=== PATIENT | female | born 1990 | race Caucasian/White ===

== ENCOUNTER 2022-06-21 21:19 | Emergency (ER) | payer OTHER, SELFPAY ==
[2022-06-21 21:39] VITALS: BP 133/70; PULSE 94; RESP 20; TEMP 36.6; O2SAT 98; BMI 28.2
--- NOTE | 2022-06-21 21:47 | DI.RAD.S_ITS ---
PROCEDURE: XR HAND RT MIN 3V INDICATIONS: 5th finger injury TECHNIQUE: 3 views of the hand(s) acquired. COMPARISON: None. FINDINGS: Bones: There is an apparent nondisplaced fracture seen involving the distal aspect of the distal phalanx of the 5th finger. No intra-articular involvement is seen. No additional fractures are detected. Soft tissues: No suspicious soft tissue calcifications. Overlying bandaging material is seen. IMPRESSION: Apparent nondisplaced fracture involving the distal aspect of the distal phalanx of the right 5th finger. Differential diagnosis includes prominent trabeculations, yet this is considered to be less likely. Dictated by: Clinton Machado M.D. on 06/21/2022 at 21:07 Approved by: Clinton Machado M.D. on 06/21/2022 at 21:10
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
== END 2022-06-21 22:24 | disposition home or self-care (01) ==
LOC: ED 22:24
PROVIDERS: Emergency Provider Family Medicine Addiction Medicine
DX: S62.666A Nondisplaced fracture of distal phalanx of right little finger, initial encounter for closed fracture (principal); V19.9XXA Pedal cyclist (driver) (passenger) injured in unspecified traffic accident, initial encounter
CPT/HCPCS: 73130; 99283

== ENCOUNTER → 2022-08-18 13:26 | Outpatient (CLI) | payer OTHER, SELFPAY ==
--- NOTE | 2022-08-18 | DI.ECHO.S_ITS ---
[place] [facility]---------+ [facility] +---------+ : : [address] : : : : [id number] : : : : Phone: [phone] Echocardiogram Report + + :Name: SABIHA PAREKH Study Date: 08/18/2022 Height: 66 in : :[facility] ReadingLocation: Weight: 190 lb : : Gender: Female BSA: 2.0 m2 : :: 1990 Age: 32 yrs BP: 110/76 mmHg: :Reason For Study: Murmur : :Ordering Physician: : :SWETHA TOVAR Performed By: Panfilo Perez : :Referring: SWETHA TOVAR : + + Interpretation Summary Normal left ventricle size with ejection fraction 55-60%. Mild mitral regurgitation. Procedure: A two-dimensional transthoracic echocardiogram with color flow and Doppler was performed. The study quality was technically adequate. There is no prior echocardiogram noted for this patient. The patient was in normal sinus rhythm during the exam. Left Ventricle: The left ventricle is normal in size and wall thickness. Left ventricular systolic function is normal. The ejection fraction is estimated to be 55-60%. There are no focal wall motion abnormalities. Diastolic parameters suggest probable normal left ventricular diastolic function and normal filling pressures. Right Ventricle: The right ventricle is normal in size and function. Atria: Both atria are normal in size. The interatrial septum grossly appears intact with no obvious evidence for an atrial septal defect. Mitral Valve: The mitral valve is normal in structure and function. There is mild mitral regurgitation. Aortic Valve: The aortic valve is normal in structure and function. No aortic regurgitation is present. Tricuspid Valve: The tricuspid valve is normal in structure and function. There is trace tricuspid regurgitation. The right ventricular systolic pressure is estimated to be at least 20 mmHg based on an estimated right atrial pressure of 3 mm Hg. Pulmonic Valve: The pulmonic valve is normal in structure and function. There is no pulmonic valvular regurgitation. Great Vessels: The aortic root is normal size. The dimensions of the ascending aorta are normal. The IVC is of normal diameter and collapses greater than 50% with a sniff. This suggests a low right atrial pressure of 3 mm Hg. Pericardium/ Pleura There is no pericardial effusion. There is no pleural effusion. MMode/2D Measurements & Calculations LVIDd: 5.0 cm LVOT diam: 1.9 cm LVIDs: 3.3 cm Ao root diam: 2.7 cm FS: 34.0 % asc Aorta Diam: 2.3 cm IVSd: 0.80 cm LVPWd: 0.80 cm LV bryson. diameter/BSA (cm/m^2): 2.6 LV sys. diameter/BSA (cm/m^2): 1.7 LA dimension: 3.0 cm RA long axis: 4.3 cm LA A2 area: 14.2 cm2 LA A4 area: 15.4 cm2 LA length (vol): 4.2 cm LA vol: 44.1 ml LA vol index: 22.5 ml/m2 TAPSE_phl: 1.9 cm Doppler Measurements & Calculations Ao V2 max: 131.0 cm/sec LVOT Max Ishan: 119.0 cm/sec Ao V2 mean: 92.3 cm/sec LV V1 max P.7 mmHg Ao max P.0 mmHg LV V1 VTI: 24.0 cm Ao mean P.0 mmHg EDDA(I,D): 2.5 cm2 Ao V2 VTI: 26.7 cm EDDA(V,D): 2.6 cm2 sev ratio: 0.90 EDDA indexed to BSA (cm^2/m^2): 1.3 MV E max ishan: 81.0 cm/sec TR max ishan: 205.0 cm/sec MV A max ishan: 44.6 cm/sec TR max P.8 mmHg MV E/A: 1.8 Med Peak E' Ishan: 12.0 cm/sec E/E' med: 6.8 Lat Peak E' Ishan: 14.0 cm/sec E/E' lat: 5.8 E/e' average: 6.3 MV dec time: 0.14 sec SV(LVOT): 68.0 ml AV VR_phl: 0.91 EDDA(VTI)/BSA_phl: 1.3 MV P1/2t-pr_phl: 41.0 msec Electronically signed by: Kevin Taylor on Reading Physician:08/19/2022 02:52 PM
== END ==
PROVIDERS: PCP Family Medicine; Referring Provider Family Medicine; Visit Provider Family Medicine
DX: I34.0 Nonrheumatic mitral (valve) insufficiency (principal); R01.0 Benign and innocent cardiac murmurs; R55 Syncope and collapse
CPT/HCPCS: 93306

== ENCOUNTER → 2022-10-19 11:12 | Outpatient (CLI) | payer OTHER, SELFPAY ==
[2022-10-19 13:34] LABS: Influenza A - CEPHEID Flu A NEGATIVE (NEGATIVE); Influenza B - CEPHEID Flu B NEGATIVE (NEGATIVE); Respiratory Syncytial Virus POSITIVE (Negative)
[2022-10-19 13:36] LABS: COVID-19 CEPHEID 4-PLEX PCR Negative (Negative)
== END ==
PROVIDERS: PCP Family Medicine; Visit Provider Nurse Practitioner Family
DX: R05.1 Acute cough (principal); Z20.822 Contact with and (suspected) exposure to COVID-19
CPT/HCPCS: 0241U

== ENCOUNTER 2022-11-19 14:12 | Emergency (ER) | payer OTHER, SELFPAY ==
[2022-11-19 14:17] VITALS: BP 112/81; PULSE 100; RESP 18; TEMP 36.6; O2SAT 100; BMI 30.3
[2022-11-19 15:03] LABS: Alanine Aminotransferase 18 IU/L (<35); Alkaline Phosphatase 54 U/L (38-126); Aspartate Aminotransferase 22 IU/L (14-36); BUN Creatinine Ratio 20.3 (6-22); Bilirubin Total 1.4 mg/dL (0.2-1.3); Blood Urea Nitrogen 14 mg/dL (7-17); Carbon Dioxide 27 mmol/L (22-32); Chloride 103 mmol/L (98-107); Estimated Glomerular Filt Rate > 60 mL/min (>60); Glucose 85 mg/dL (70-100); Lipase 80 U/L (23-300); Potassium 3.8 mmol/L (3.4-5.1); Sodium 140 mmol/L (137-145); Total Protein 8.2 g/dL (6.3-8.2)
[2022-11-19 15:11] LABS: Add Manual Diff / Slide Review NO; Basophils Absolute Auto 0 /uL (0-100); Basophils Percent Auto 0.3 % (0-2); Eosinophils Absolute Auto 300 /uL (0-450); Eosinophils Percent Auto 5.2 % (2-4); Hematocrit 43.4 % (36-46); Hemoglobin 14.9 g/dL (12.0-16.0); Lymphocytes Absolute Auto 1800 /uL (1100-4500); Lymphocytes Percent Auto 26.8 % (25-40); Mean Corpuscular HGB Conc 34.2 % (30-36); Mean Corpuscular Hemoglobin 29.6 PG (26-34); Mean Corpuscular Volume 86.7 fL (80-100); Monocytes Absolute Auto 400 /uL (0-900); Monocytes Percent Auto 6.6 % (3-14); Neutrophils Absolute Auto 4000 /uL (1500-7000); Neutrophils Percent Auto 61.1 % (50-75); Platelet Count 304 X10^3/uL (150-400); Red Blood Cell Count 5.01 X10^6/uL (4.0-5.2); Red Cell Distribution Width 12.3 % (11.6-14.8); White Blood Cell Count 6.6 X10^3/uL (4.5-11.0)
[2022-11-19 15:24] LABS: Bacteria Urine None Seen; Culture Indicated Urine Cult Not Indicated; Mucus Urine 2+ (Negative); RBC Urine 1-5/HPF (0-5/HPF); Squamous Epithelial Cell Urine 1-5 /HPF (0-5/HPF); WBC Urine 0-1/HPF (0-5/HPF)
--- NOTE | 2022-11-19 15:28 | DI.CT.S_ITS ---
PROCEDURE: CT ABDOMEN PELVIS W CON INDICATIONS: Right pelvic/flank pain, hx partial hysterectomy, endometriosis TECHNIQUE: After the administration of IV contrast, axial sections were acquired from the lung bases to the pubic symphysis. Coronal and sagittal reformats were performed. For radiation dose reduction, the following was used: automated exposure control, adjustment of mA and/or kV according to patient size. COMPARISON: None. FINDINGS: Image quality: Excellent. Lung bases: Unremarkable. Small hiatal hernia. Heart: No significant findings. ABDOMEN: Liver: Normal size. Mild hepatic steatosis.. Gallbladder: Unremarkable. Biliary ducts: Unremarkable. Pancreas: Unremarkable. Spleen: Unremarkable. Adrenal Glands: Small 0.8 cm indeterminate left adrenal nodule. Right adrenal is normal. Kidneys and Ureters: Unremarkable. Stomach and Bowel: Stomach, small bowel loops, and colon are normal in caliber. There is a large amount of stool in colon. Appendix is normal. Peritoneum: No abnormal intraperitoneal fluid. No free air. Ventral Wall: No hernia. Abdominal Nodes: No retroperitoneal or mesenteric adenopathy by size criteria. Vessels: Aorta and inferior vena cava are normal in size. PELVIS: Pelvic Organs: Uterus is absent. Ovaries are not visualized. No adnexal mass. No free fluid in pelvis.. Bladder: Unremarkable. Pelvic Nodes: No enlarged lymph nodes. Miscellaneous: No inguinal hernias are seen. Bones: Unremarkable. IMPRESSION: 1. A cause for right flank pain right lower quadrant pain is not identified on CT. New line 2. Normal appendix. 3. A 0.8 cm indeterminate left adrenal nodule, most likely a small adrenal adenoma. 4. Hepatic steatosis. Dictated by: Cassius Carver M.D. on 11/19/2022 at 15:01 Approved by: Cassius Carver M.D. on 11/19/2022 at 15:05
--- NOTE | 2022-11-19 15:29 | ED_ITS ---
HPI - Abdominal Pain <Consuelo Mooney, CULINARY SPECIALIST - Last Filed: 11/19/22 18:02> General Chief Complaint: Abdominal Pain Stated Complaint: severe abd/back pain rt side Time Seen by Provider: 11/19/22 14:55 Source: patient Mode of arrival: Ambulatory History of Present Illness HPI narrative: This is a 32-year-old female with history of partial hysterectomy, endometriosis, PCOS who presents to the emergency department with concern about worsening right pelvic pain that started yesterday, she states it is severe, and she states she is concerned about obstructive uropathy due to endometrial tissue. She states that her partial hysterectomy was last year, and the surgeon told her that she had endometrial tissue wrapped around the right proximal ureter. Patient denies fever or chills, endorses nausea, states that her pain comes and goes and when it comes on its approximally 7 or 8/10. She states positional changes can affect this. She is not had any pain medication today, she is driving herself home. She denies abnormal vaginal discharge but endorses having vaginal odor yesterday. Related Data Home Medications Medication Instructions Recorded Confirmed cholecalciferol (vitamin D3) 75 75 mcg PO DAILY 09/08/22 11/04/22 mcg (3,000 unit) tablet spironolactone 25 mg tablet 25 mg PO DAILY 09/08/22 11/04/22 Previous Rx's Medication Instructions Recorded phentermine 37.5 mg capsule 37.5 mg PO DAILY #30 caps 11/04/22 ibuprofen 600 mg tablet 600 mg PO Q6-8H PRN pain #30 tabs 11/19/22 ondansetron 4 mg disintegrating 4 mg PO Q8H PRN nausea and 11/19/22 tablet vomiting #14 tabs oxycodone-acetaminophen 5 mg-325 1 tab PO Q8H PRN pain #10 tabs 11/19/22 mg tablet (Percocet) polyethylene glycol 3350 17 17 g PO DAILY PRN constipation 11/19/22 gram/dose oral powder (Miralax) #238 grams Allergies Allergy/AdvReac Type Severity Reaction Status Date / Time Sulfa (Sulfonamide Allergy Hives Verified 11/19/22 14:17 Antibiotics) watermelon AdvReac Intermediate Hives Verified 11/19/22 14:17 doxycycline AdvReac Vomiting Verified 11/19/22 14:17 latex AdvReac Verified 11/19/22 14:17 Review of Systems <VINNY García - Last Filed: 11/19/22 18:02> Review of Systems ROS Unobtainable: All systems reviewed & are unremarkable except as noted in HPI and below Patient History <VINNY García - Last Filed: 11/19/22 18:02> Medical History Acne (~2006) Chicken pox History of PCOS (~2004) Obesity (BMI 30.0-34.9) Ovarian cyst (~2004) Painful menstrual periods (~2004) Scalp psoriasis (~1999) Surgical History Anesthesia History of mandibular surgery (~2013) History of tonsillectomy Status post hysterectomy Family History Father History of heart disease Hypertension COPD (chronic obstructive pulmonary disease) Mother Hyperlipidemia History of PCOS Grandfather History of heart disease Grandmother Diabetes mellitus History of heart disease Grandfather History of heart disease Social History Smoking Status: Never smoker Smoking Status: Never smoker alcohol intake frequency: holidays/special occasions only Substance Use Type: does not use Exam <VINNY García - Last Filed: 11/19/22 18:02> Narrative Exam Narrative: Reviewed vitals signs and nursing notes. General: cooperative, comfortable, in no acute distress, well groomed HEENT: symmetrical facial expressions, moist mucous membranes Cardiovascular: regular rate and rhythm, no peripheral edema, warm extremities Respiratory: normal effort, able to speak in complete sentences, without wheezing, stridor, or abnormal breath sounds. No retractions or tachypnea. GI: abdomen soft, nontender to palpation, nondistended, without masses, rebound tenderness or exquisite tenderness with exam. No CVAT, no tenderness to right inguinal, groin, or right lower quadrant region, negative psoas, negative Saini's sign, nontender over McBurney's point MSK: moves all extremities, neurovascularly intact, no weakness, normal tone Skin: brisk capillary refill, without pallor or erythema Neuro: normal speech and cognition, A&O x3, ambulatory, clear speech Psych: mental status is grossly normal, congruent mood, normal affect, pleasant and cooperative Initial Vital Signs Initial Vital Signs: Vital Signs Temperature 97.9 F 11/19/22 14:17 Pulse Rate 100 H 11/19/22 14:17 Respiratory Rate 18 11/19/22 14:17 Blood Pressure 112/81 11/19/22 14:17 Pulse Oximetry 100 11/19/22 14:17 Oxygen Delivery Method 11/19/22 14:17 <Ashanti Rossi DO - Last Filed: 11/20/22 08:04> Initial Vital Signs Initial Vital Signs: Vital Signs Temperature 97.9 F 11/19/22 14:17 Pulse Rate 100 H 11/19/22 14:17 Respiratory Rate 18 11/19/22 14:17 Blood Pressure 112/81 11/19/22 14:17 Pulse Oximetry 100 11/19/22 14:17 Oxygen Delivery Method 11/19/22 14:17 Course <VINNY García - Last Filed: 11/19/22 18:02> Orders Ordered: Discontinued Medications Acetaminophen (Acetaminophen 325 Mg Tablet) 650 mg PO NOW ONE Stop: 11/19/22 15:35 Last Admin: 11/19/22 15:50 Dose: 650 mg Documented By: SIDDHARTHA Bisacodyl (Bisacodyl 5 Mg Tablet) 5 mg PO NOW ONE Stop: 11/19/22 17:34 Last Admin: 11/19/22 17:58 Dose: 5 mg Documented By: SIDDHARTHA Sodium Chloride (Normal Saline 0.9%) 1,000 mls @ 1,000 mls/hr IV BOLUS ONE Stop: 11/19/22 16:33 Last Admin: 11/19/22 15:50 Dose: 1,000 mls/hr Documented By: SIDDHARTHA Ketorolac Tromethamine (Ketorolac 30 Mg/Ml Vial) 15 mg IV NOW ONE Stop: 11/19/22 15:35 Last Admin: 11/19/22 15:50 Dose: 15 mg Documented By: SIDDHARTHA Ondansetron HCl (Ondansetron 4 Mg/2 Ml Inj) 4 mg IV NOW PRN PRN Reason: Nausea And Vomiting Last Admin: 11/19/22 15:50 Dose: 4 mg Documented By: SIDDHARTHA Oxycodone/Acetaminophen (Oxycodone/Acetaminophen 5/325 Tablet) 1 tab PO NOW ONE Stop: 11/19/22 17:34 Last Admin: 11/19/22 17:51 Dose: 1 tab Documented By: SIDDHARTHA Promethazine HCl (Promethazine 25 Mg Tablet) 12.5 mg PO NOW ONE Stop: 11/19/22 17:19 Last Admin: 11/19/22 17:57 Dose: 12.5 mg Documented By: SIDDHARTHA Vital Signs Vital signs: Vital Signs - 8 hr 11/19/22 14:17 Temperature 97.9 F Pulse Rate 100 H Respiratory Rate 18 Blood Pressure 112/81 Pulse Oximetry 100 Oxygen Delivery Method Room Air <Ashanti Rossi DO - Last Filed: 11/20/22 08:04> Orders Ordered: Discontinued Medications Acetaminophen (Acetaminophen 325 Mg Tablet) 650 mg PO NOW ONE Stop: 11/19/22 15:35 Last Admin: 11/19/22 15:50 Dose: 650 mg Documented By: SIDDHARTHA Bisacodyl (Bisacodyl 5 Mg Tablet) 5 mg PO NOW ONE Stop: 11/19/22 17:34 Last Admin: 11/19/22 17:58 Dose: 5 mg Documented By: SIDDHARTHA Sodium Chloride (Normal Saline 0.9%) 1,000 mls @ 1,000 mls/hr IV BOLUS ONE Stop: 11/19/22 16:33 Last Admin: 11/19/22 15:50 Dose: 1,000 mls/hr Documented By: SIDDHARTHA Ketorolac Tromethamine (Ketorolac 30 Mg/Ml Vial) 15 mg IV NOW ONE Stop: 11/19/22 15:35 Last Admin: 11/19/22 15:50 Dose: 15 mg Documented By: SIDDHARTHA Ondansetron HCl (Ondansetron 4 Mg/2 Ml Inj) 4 mg IV NOW PRN PRN Reason: Nausea And Vomiting Last Admin: 11/19/22 15:50 Dose: 4 mg Documented By: SIDDHARTHA Oxycodone/Acetaminophen (Oxycodone/Acetaminophen 5/325 Tablet) 1 tab PO NOW ONE Stop: 11/19/22 17:34 Last Admin: 11/19/22 17:51 Dose: 1 tab Documented By: SIDDHARTHA Promethazine HCl (Promethazine 25 Mg Tablet) 12.5 mg PO NOW ONE Stop: 11/19/22 17:19 Last Admin: 11/19/22 17:57 Dose: 12.5 mg Documented By: SIDDHARTHA Vital Signs Vital signs: Vital Signs - 8 hr 11/19/22 14:17 Temperature 97.9 F Pulse Rate 100 H Respiratory Rate 18 Blood Pressure 112/81 Pulse Oximetry 100 Oxygen Delivery Method Room Air MDM - Abdominal Pain <Consuelo Mooney, [facility] - Last Filed: 11/19/22 18:02> Lab Data Result diagrams: 11/19/22 14:34 11/19/22 14:34 Labs: Lab Results 11/19/22 11/19/22 11/19/22 Range/Units 14:34 14:34 14:34 WBC 6.6 (4.5-11.0) X10^3/uL RBC 5.01 (4.0-5.2) X10^6/uL Hgb 14.9 (12.0-16.0) g/dL Hct 43.4 (36-46) % MCV 86.7 (80-100) fL MCH 29.6 (26-34) PG MCHC 34.2 (30-36) % RDW 12.3 (11.6-14.8) % Plt Count 304 (150-400) X10^3/uL Neut % (Auto) 61.1 (50-75) % Lymph % (Auto) 26.8 (25-40) % Pitkin % (Auto) 6.6 (3-14) % Eos % (Auto) 5.2 H (2-4) % Baso % (Auto) 0.3 (0-2) % Neut # (Auto) 4000 (8805-2111) /uL Lymph # (Auto) 1800 (0950-3519) /uL Pitkin # (Auto) 400 (0-900) /uL Eos # (Auto) 300 (0-450) /uL Baso # (Auto) 0 (0-100) /uL Sodium 140 (137-145) mmol/L Potassium 3.8 (3.4-5.1) mmol/L Chloride 103 (98-107) mmol/L Carbon Dioxide 27 (22-32) mmol/L BUN 14 (7-17) mg/dL Creatinine 0.69 (0.52-1.04) mg/dL Estimated GFR > 60 (>60) mL/min BUN/Creatinine Ratio 20.3 (6-22) Glucose 85 (70-100) mg/dL Calcium 9.0 (8.4-10.2) mg/dL Total Bilirubin 1.4 H (0.2-1.3) mg/dL AST 22 (14-36) IU/L ALT 18 (<35) IU/L Alkaline Phosphatase 54 (38-126) U/L C-Reactive Protein < 0.5 (<1.0) mg/dL Total Protein 8.2 (6.3-8.2) g/dL Lipase 80 (23-300) U/L Urine RBC (0-5/HPF) Urine WBC (0-5/HPF) Ur Squamous Epith Cells (0-5/HPF) Urine Bacteria (None) Urine Mucus (Negative) Ur Culture Indicated? 11/19/22 Range/Units 15:00 WBC (4.5-11.0) X10^3/uL RBC (4.0-5.2) X10^6/uL Hgb (12.0-16.0) g/dL Hct (36-46) % MCV (80-100) fL MCH (26-34) PG MCHC (30-36) % RDW (11.6-14.8) % Plt Count (150-400) X10^3/uL Neut % (Auto) (50-75) % Lymph % (Auto) (25-40) % Pitkin % (Auto) (3-14) % Eos % (Auto) (2-4) % Baso % (Auto) (0-2) % Neut # (Auto) (4082-6839) /uL Lymph # (Auto) (3995-3545) /uL Pitkin # (Auto) (0-900) /uL Eos # (Auto) (0-450) /uL Baso # (Auto) (0-100) /uL Sodium (137-145) mmol/L Potassium (3.4-5.1) mmol/L Chloride (98-107) mmol/L Carbon Dioxide (22-32) mmol/L BUN (7-17) mg/dL Creatinine (0.52-1.04) mg/dL Estimated GFR (>60) mL/min BUN/Creatinine Ratio (6-22) Glucose (70-100) mg/dL Calcium (8.4-10.2) mg/dL Total Bilirubin (0.2-1.3) mg/dL AST (14-36) IU/L ALT (<35) IU/L Alkaline Phosphatase (38-126) U/L C-Reactive Protein (<1.0) mg/dL Total Protein (6.3-8.2) g/dL Lipase (23-300) U/L Urine RBC 1-5/hpf (0-5/HPF) Urine WBC 0-1/hpf (0-5/HPF) Ur Squamous Epith Cells 1-5 /hpf (0-5/HPF) Urine Bacteria None seen (None) Urine Mucus 2+ H (Negative) Ur Culture Indicated? Cult not indicated Point of care testing: Point of Care Testing Test Results Negative Urine Dip Bedside Urine Glucose Negative Bedside Urine Bilirubin - Negative Bedside Urine Ketone + 15 Urine Specific [place] 1.030 Bedside Urine Occult Blood ++ Bedside Urine pH 6.0 Bedside Urine Protein - Negative Bedside Urine Urobilinogen - Negative Bedside Urine Nitrite - Negative Bedside Urine Leukocytes - Negative Esterase Imaging Data CT scan - abdomen/pelvis: Radiologist's Impression: PROCEDURE:? CT ABDOMEN PELVIS W CON ? INDICATIONS:? Right pelvic/flank pain, hx partial hysterectomy, endometriosis ? TECHNIQUE:? After the administration of IV contrast, axial sections were acquired from the lung bases to the pubic symphysis.? Coronal and sagittal reformats were performed.? For radiation dose reduction, the following was used:? automated exposure control, adjustment of mA and/or kV according to patient size. ? COMPARISON:? None. ? FINDINGS:? Image quality:? Excellent.? ? Lung bases:? Unremarkable.? Small hiatal hernia. ? Heart:? No significant findings. ? ? ABDOMEN: Liver:? Normal size.? Mild hepatic steatosis..? ? Gallbladder:? Unremarkable.? ? Biliary ducts:? Unremarkable.? ? Pancreas:? Unremarkable.? ? Spleen:? Unremarkable.? ? Adrenal Glands:? Small 0.8 cm indeterminate left adrenal nodule.? Right adrenal is normal.? ? Kidneys and Ureters:? Unremarkable.? ? ? Stomach and Bowel:? Stomach, small bowel loops, and colon are normal in caliber.? There is a large amount of stool in colon.? Appendix is normal. Peritoneum:? No abnormal intraperitoneal fluid.? No free air.? ? Ventral Wall: ? No hernia.? Abdominal Nodes:? No retroperitoneal or mesenteric adenopathy by size criteria.? Vessels:? Aorta and inferior vena cava are normal in size.? ? PELVIS: Pelvic Organs:? Uterus is absent.? Ovaries are not visualized.? No adnexal mass.? No free fluid in pelvis..? ? Bladder:? Unremarkable.? ? Pelvic Nodes: No enlarged lymph nodes.? Miscellaneous: No inguinal hernias are seen. ? ? ? Bones:? Unremarkable.? ? ? IMPRESSION:? ? 1.? A cause for right flank pain right lower quadrant pain is not identified on CT.? New line 2.? Normal appendix. 3.? A 0.8 cm indeterminate left adrenal nodule, most likely a small adrenal adenoma. 4. Hepatic steatosis.? ?? Dictated by: Cassius Carver M.D. on 11/19/2022 at 15:01 ? ? Approved by: Cassius Carver M.D. on 11/19/2022 at 15:05 ? US - HEATING ELEMENT BUILDER: Radiologist's Impression: PROCEDURE:? US PELVIC COMPLETE ? INDICATIONS:? RIGHT PELVIC PAIN. UTERUS SURGICALLY REMOVED. ? TECHNIQUE:? Real-time scanning was performed of the pelvic organs, with image documentation.? Additional endovaginal scanning was necessary due to incomplete visualization of the adnexal and endometrial structures by transabdominal scanning.? ? COMPARISON:? [facility], CT, CT ABDOMEN PELVIS W [facility], 11/19/2022, 15:40. ? FINDINGS:? ?? Uterus:? Uterus is surgically absent ? Ovaries:? The right ovary measures 3.6 x 2.9 x 1.5 cm, with a calculated ovarian volume 5.5 cc. The left ovary measures 3.7 x 2.3 x 1.9 cm, with a calculated ovarian volume of 8 point cc.? There is a 2.1 x 1.4 x 1.4 cm heterogeneous solid area in the left ovary demonstrating increased vascularity. Less than 12 follicles can be seen in each ovary.? No adnexal masses are seen.? On Doppler ultrasound, there is vascular flow to both ovaries. ? Other:? No pathologic free abdominal or pelvic fluid. ? IMPRESSION:? ? 1. Absence of uterus consistent with hysterectomy. 2. A 2.1 x 1.4 x 1.4 cm solid, heterogeneous area in the left ovary demonstrating increased vascularity.? The finding is of uncertain clinical significance.? A short-term follow-up ultrasound is recommended in 6 weeks. ? We strive to produce accurate, complete, and clear reports of imaging services. To assist us in improving patient care, this report was composed using standard report templates and voice recognition software. Therefore, it may contain abnormal punctuation, insertions and/or omissions. Occasional wrong-word or sound-alike substitutions may occur. Though we review the report and make efforts to correct it, we do recommend that the report be read carefully in proper context to recognize any text inaccuracies. ? MDM Narrative Medical decision making narrative: CC: Severe right pelvic pain This is a 31-year-old female with history of partial hysterectomy, PCOS, endometriosis who presents emergency department complaining severe right sided pelvic pain which came on suddenly yesterday. She states that her pain has been intermittent currently severe over the last 24 hours, denies abnormal vaginal discharge but endorses vaginal odor. Differential diagnoses include, but are not limited to: Ectopic , ovarian cyst, ovarian torsion nephrolithiasis, obstructive uropathy, pyelonephritis, acute cystitis, diverticulitis, perforated viscus, salpingitis I have reviewed the patient's vital signs and nursing notes as well as prior records if available. Lab test results independently reviewed, pertinent findings: Urine is negative, UA is negative WBCs, RBCs or bacteria, wet prep is negative for yeast, Trichomonas, clue cells and WBCs. Total bilirubin is 1.4 without elevation of other liver enzymes, no elevation to CRP, no leukocytosis, no anemia, no electrolyte abnormalities My imaging interpretation: CT abdomen pelvis does not show an acute cause for her right groin/flank pain, normal appendix, incidental finding of a 0.8 cm left adrenal nodule, likely a small adrenal adenoma, and mild hepatic steatosis. Incidental finding of 0.8 cm left adrenal nodule, most likely small renal adenoma Transvaginal ultrasound, voip network technician Discussion of Management with other Health Professionals: Dr. Russell, OBGYN Re-evaluations/Ongoing course of care: 1520 saw the patient her bedside, she discusses her history, her exam is concerning for right nephrolithiasis or obstructive uropathy bacterial vaginosis, salpingitis or ovarian torsion. 1610-30 ultrasound is in the room with the patient she is back from CT, she was medicated for pain 1645 ultrasound is still in the room with the patient [address] Russell regarding patient's ultrasound report. Transvaginal ultrasound shows absence of uterus consistent with her partial hysterectomy, a 2.1 x 1.4 x 1.4 cm solid heterogeneous area in the left ovary demonstrating any increased vascularity. She recommends that patient can follow-up with her in the office, provided pain control and stool softeners for discharge. 1745 overall, patient's lab work is unremarkable and her imaging suggests a in the left ovary, there is an incidentaloma ain the left adrenal gland, likely a small adenoma. Sat down and discussed the imaging findings Shared decision making: Patient's symptoms improved over duration of stay with a concepcion-stated therapies with the patient today, she accepts this well, she has versus nausea, she was treated with p.o. promethazine 12.5 mg and this was helpful. She was given Percocet for her pain and had a friend show up who could drive her home. Discussion: Patient's symptoms are improved, she is ready to go home, understands to follow up with Dr. Russell as an outpatient in clinic regarding her left ovarian mass. She understands to return emergency department for any worsening of his symptoms. Disposition: see below, along with detailed discharge instructions that have been reviewed with the patient as well as indications for ED re-evaluation and additional outpatient follow-up. Questions are addressed and there is agreement with the plan and for follow-up. Patient is appropriate for outpatient management. MIPS: This encounter doesn't have any diagnosis associated with MIPS criteria. I, Consuelo Mooney [facility], personally performed the services described in the documentation, and it accurately records my words and actions. I collaborated with the ED attending physician for YANI level 2, 3, and some level 4s as appropriate. <Ashanti Rossi, DO - Last Filed: 11/20/22 08:04> Lab Data Labs: Lab Results 11/19/22 11/19/22 11/19/22 Range/Units 14:34 14:34 14:34 WBC 6.6 (4.5-11.0) X10^3/uL RBC 5.01 (4.0-5.2) X10^6/uL Hgb 14.9 (12.0-16.0) g/dL Hct 43.4 (36-46) % MCV 86.7 (80-100) fL MCH 29.6 (26-34) PG MCHC 34.2 (30-36) % RDW 12.3 (11.6-14.8) % Plt Count 304 (150-400) X10^3/uL Neut % (Auto) 61.1 (50-75) % Lymph % (Auto) 26.8 (25-40) % Pitkin % (Auto) 6.6 (3-14) % Eos % (Auto) 5.2 H (2-4) % Baso % (Auto) 0.3 (0-2) % Neut # (Auto) 4000 (3029-0973) /uL Lymph # (Auto) 1800 (3669-9152) /uL Pitkin # (Auto) 400 (0-900) /uL Eos # (Auto) 300 (0-450) /uL Baso # (Auto) 0 (0-100) /uL Sodium 140 (137-145) mmol/L Potassium 3.8 (3.4-5.1) mmol/L Chloride 103 (98-107) mmol/L Carbon Dioxide 27 (22-32) mmol/L BUN 14 (7-17) mg/dL Creatinine 0.69 (0.52-1.04) mg/dL Estimated GFR > 60 (>60) mL/min BUN/Creatinine Ratio 20.3 (6-22) Glucose 85 (70-100) mg/dL Calcium 9.0 (8.4-10.2) mg/dL Total Bilirubin 1.4 H (0.2-1.3) mg/dL AST 22 (14-36) IU/L ALT 18 (<35) IU/L Alkaline Phosphatase 54 (38-126) U/L C-Reactive Protein < 0.5 (<1.0) mg/dL Total Protein 8.2 (6.3-8.2) g/dL Lipase 80 (23-300) U/L Urine RBC (0-5/HPF) Urine WBC (0-5/HPF) Ur Squamous Epith Cells (0-5/HPF) Urine Bacteria (None) Urine Mucus (Negative) Ur Culture Indicated? 11/19/22 Range/Units 15:00 WBC (4.5-11.0) X10^3/uL RBC (4.0-5.2) X10^6/uL Hgb (12.0-16.0) g/dL Hct (36-46) % MCV (80-100) fL MCH (26-34) PG MCHC (30-36) % RDW (11.6-14.8) % Plt Count (150-400) X10^3/uL Neut % (Auto) (50-75) % Lymph % (Auto) (25-40) % [place] % (Auto) (3-14) % Eos % (Auto) (2-4) % Baso % (Auto) (0-2) % Neut # (Auto) (2183-6063) /uL Lymph # (Auto) (2076-0652) /uL [place]kin # (Auto) (0-900) /uL Eos # (Auto) (0-450) /uL Baso # (Auto) (0-100) /uL Sodium (137-145) mmol/L Potassium (3.4-5.1) mmol/L Chloride (98-107) mmol/L Carbon Dioxide (22-32) mmol/L BUN (7-17) mg/dL Creatinine (0.52-1.04) mg/dL Estimated GFR (>60) mL/min BUN/Creatinine Ratio (6-22) Glucose (70-100) mg/dL Calcium (8.4-10.2) mg/dL Total Bilirubin (0.2-1.3) mg/dL AST (14-36) IU/L ALT (<35) IU/L Alkaline Phosphatase (38-126) U/L C-Reactive Protein (<1.0) mg/dL Total Protein (6.3-8.2) g/dL Lipase (23-300) U/L Urine RBC 1-5/hpf (0-5/HPF) Urine WBC 0-1/hpf (0-5/HPF) Ur Squamous Epith Cells 1-5 /hpf (0-5/HPF) Urine Bacteria None seen (None) Urine Mucus 2+ H (Negative) Ur Culture Indicated? Cult not indicated Point of care testing: Point of Care Testing Test Results Negative Urine Dip Bedside Urine Glucose Negative Bedside Urine Bilirubin - Negative Bedside Urine Ketone + 15 Urine Specific [place] 1.030 Bedside Urine Occult Blood ++ Bedside Urine pH 6.0 Bedside Urine Protein - Negative Bedside Urine Urobilinogen - Negative Bedside Urine Nitrite - Negative Bedside Urine Leukocytes - Negative Esterase Discharge Plan Departure Patient Disposition: Home Clinical Impression: Pelvic pain, Adrenal nodule, Ovarian mass, left Instructions: DI for Pelvic Pain, Adrenal Incidentaloma Activity Restrictions/Additional Instructions: *You have been diagnosed with pelvic pain without clear etiology on the right side as to why. CT does not show any kidney stone abnormality, or other acute intra-abdominal abnormality. The pelvis ultrasound shows an abnormality on the left and it will need further evaluation by OBGYN. I have spoke with Dr. Russell, the on-call OBGYN who agrees to see you in clinic as an outpatient. There is no elevation to your white blood cell count, no signs of inflammation, likely some mild dehydration, the urine was normal and the vaginal secretions were also normal. For your pain, please use the medications prescribed for you while taking MiraLax daily to encourage saw stool. Ovaries are very sensitive to firm stool when the bowels move. Please follow-up with your primary care provider as needed and make an appointment with Dr. Russell as soon as you are able. *What to do: *Please continue to take your regular medications as directed. [x] New medication prescriptions sent to your pharmacy: [[facility]] [ ] New medication written as a paper prescription [ ] No new medications given *Please follow up with your primary care provider in 2-3 days, call for an appointment. Let them know you were seen in the Emergency Department and that we asked that you be seen for follow-up. We will electronically transmit a record of today's note if your PCP is in our system *If you do not have a primary care provider please contact [phone] to establish care with one of the [facility] primary care providers. *Return to Emergency Department if you should have any new, worsening, or concerning symptoms, such as [fever greater than 101F, chills, worsening pain, persistent vomiting or other bothersome symptoms]. Prescriptions: New oxycodone-acetaminophen [Percocet] 5-325 mg tablet 1 tab PO Q8H PRN (Reason: pain) Qty: 10 0RF ibuprofen 600 mg tablet 600 mg PO Q6-8H PRN (Reason: pain) Qty: 30 0RF polyethylene glycol 3350 [Miralax] 17 gram/dose powder 17 g PO DAILY PRN (Reason: constipation) Qty: 238 0RF ondansetron 4 mg tablet,disintegrating 4 mg PO Q8H PRN (Reason: nausea and vomiting) Qty: 14 0RF No Action phentermine 37.5 mg capsule 37.5 mg PO DAILY Qty: 30 2RF Rx Instructions: must administer 30 minutes before or 1-2 hours after breakfast spironolactone 25 mg tablet 25 mg PO DAILY cholecalciferol (vitamin D3) 75 mcg (3,000 unit) tablet 75 mcg PO DAILY Referrals: Trisha Russell MD [Physician] - Gifty Arzola DO [Primary Care Provider] - Stand Alone Forms: Patient Portal/API <Ashanti Rossi DO - Last Filed: 11/20/22 08:04> Cosign ED Attending Prabhakar Attestation: I was immediately available in the department for consultation. Documentation has been reviewed.
[2022-11-19] MEDS: KETOROLAC 30 MG/ML VIAL 15 MG IV (15:50)
[2022-11-19] MEDS: ACETAMINOPHEN 325 MG TABLET 650 MG PO (15:50)
[2022-11-19] MEDS: SODIUM CHLORIDE 0.9% 1,000 ML 1000 ML IV (15:50)
[2022-11-19] MEDS: ONDANSETRON 4 MG/2 ML INJ IV (15:50)
--- NOTE | 2022-11-19 16:10 | DI.US.S_ITS ---
PROCEDURE: US PELVIC COMPLETE INDICATIONS: RIGHT PELVIC PAIN. UTERUS SURGICALLY REMOVED. TECHNIQUE: Real-time scanning was performed of the pelvic organs, with image documentation. Additional endovaginal scanning was necessary due to incomplete visualization of the adnexal and endometrial structures by transabdominal scanning. COMPARISON: [facility], CT, CT ABDOMEN PELVIS W CON, 11/19/2022, 15:40. FINDINGS: Uterus: Uterus is surgically absent Ovaries: The right ovary measures 3.6 x 2.9 x 1.5 cm, with a calculated ovarian volume 5.5 cc. The left ovary measures 3.7 x 2.3 x 1.9 cm, with a calculated ovarian volume of 8 point cc. There is a 2.1 x 1.4 x 1.4 cm heterogeneous solid area in the left ovary demonstrating increased vascularity. Less than 12 follicles can be seen in each ovary. No adnexal masses are seen. On Doppler ultrasound, there is vascular flow to both ovaries. Other: No pathologic free abdominal or pelvic fluid. IMPRESSION: 1. Absence of uterus consistent with hysterectomy. 2. A 2.1 x 1.4 x 1.4 cm solid, heterogeneous area in the left ovary demonstrating increased vascularity. The finding is of uncertain clinical significance. A short-term follow-up ultrasound is recommended in 6 weeks. We strive to produce accurate, complete, and clear reports of imaging services. To assist us in improving patient care, this report was composed using standard report templates and voice recognition software. Therefore, it may contain abnormal punctuation, insertions and/or omissions. Occasional wrong-word or sound-alike substitutions may occur. Though we review the report and make efforts to correct it, we do recommend that the report be read carefully in proper context to recognize any text inaccuracies. Dictated by: Cassius Carver M.D. on 11/19/2022 at 16:20 Approved by: Cassius Carver M.D. on 11/19/2022 at 16:28
[2022-11-19 16:13] LABS: C-Reactive Protein Quant < 0.5 mg/dL (<1.0)
[2022-11-19] MEDS: OXYCODONE/ACETAMINOPHEN 5/325 TABLET 1 TAB PO (17:51)
[2022-11-19] MEDS: PROMETHAZINE 25 MG TABLET 12.5 MG PO (17:57)
[2022-11-19] MEDS: BISACODYL 5 MG TABLET PO (17:58)
[2022-11-19 18:03] VITALS: BP 110/60; PULSE 90; O2SAT 100
[2022-11-21 16:30] LABS: Albumin 4.4 g/dL (3.5-5.0); Albumin Globulin Ratio 1.2 (1.0-2.8); Globulin 3.8 g/dL (1.7-4.1); HEMOLYSIS 15 (0-50)
== END 2022-11-19 18:03 | disposition home or self-care (01) ==
PROVIDERS: Emergency Medicine; Emergency Provider Nurse Practitioner Critical Care Medicine; PCP Family Medicine
DX: N83.8 Other noninflammatory disorders of ovary, fallopian tube and broad ligament (principal); R10.2 Pelvic and perineal pain; E27.8 Other specified disorders of adrenal gland
CPT/HCPCS: 74177; 76830; 76856; 80053; 81003; 81015; 81025; 83690; 85025; 86140; 87210; 93975; 96374; 96375; 99284; J1885; J2405; Q9967

== ENCOUNTER 2022-12-07 20:12 | Emergency (ER) | payer BC, OTHER, SELFPAY ==
[2022-12-07 20:22] VITALS: BP 151/78; PULSE 95; RESP 20; TEMP 37.1; O2SAT 100; BMI 30.7
[2022-12-07 21:52] VITALS: BP 101/56; PULSE 85; RESP 20; O2SAT 100
--- NOTE | 2022-12-07 22:49 | ED.GENADULT ---
HPI - General Adult General Chief complaint: Urogenital-Female Stated complaint: left ovarian pain x1 day Time Seen by Provider: 12/07/22 20:35 Source: patient Mode of arrival: Ambulatory History of Present Illness HPI narrative: 32-year-old woman with a history of ovarian cysts presents with severe left adnexal pain that started approximately 23 hours ago. She is tried [id number] medications that have not been effective in controlling pain. She did go to work today and the pain was severe enough that she had near syncopal/vasovagal type episode. She notes that she has been having these syncopal/vasovagal type episodes and has had a workup for that including echocardiogram recently. She is not describing any significant dizziness. There is no vaginal discharge or bleeding but she is post partial hysterectomy. She has an appointment to follow-up with OBGYN in December regarding her adnexal pain. She describes no fevers, cough, chills. She did not have a bowel movement yesterday with a normal 1 the day before. She is not having dysuria or gross hematuria. She is not complaining of flank pain. She has not had any emesis. Related Data Home Medications Medication Instructions Recorded Confirmed cholecalciferol (vitamin D3) 75 75 mcg PO DAILY 09/08/22 11/04/22 mcg (3,000 unit) tablet spironolactone 25 mg tablet 25 mg PO DAILY 09/08/22 11/04/22 Previous Rx's Medication Instructions Recorded phentermine 37.5 mg capsule 37.5 mg PO DAILY #30 caps 11/04/22 ibuprofen 600 mg tablet 600 mg PO Q6-8H PRN pain #30 tabs 11/19/22 ondansetron 4 mg disintegrating 4 mg PO Q8H PRN nausea and 11/19/22 tablet vomiting #14 tabs oxycodone-acetaminophen 5 mg-325 1 tab PO Q8H PRN pain #10 tabs 11/19/22 mg tablet (Percocet) polyethylene glycol 3350 17 17 g PO DAILY PRN constipation 11/19/22 gram/dose oral powder (Miralax) #238 grams Allergies Allergy/AdvReac Type Severity Reaction Status Date / Time Sulfa (Sulfonamide Allergy Hives Verified 12/07/22 20:28 Antibiotics) watermelon AdvReac Intermediate Hives Verified 12/07/22 20:28 doxycycline AdvReac Vomiting Verified 12/07/22 20:28 latex AdvReac Verified 12/07/22 20:28 Review of Systems Review of Systems Narrative: Remainder of complete review of systems is otherwise unremarkable except for that included in the HPI. Patient History Medical History Acne (~2006) Chicken pox History of PCOS (~2004) Obesity (BMI 30.0-34.9) Ovarian cyst (~2004) Painful menstrual periods (~2004) Scalp psoriasis (~1999) Surgical History Anesthesia History of mandibular surgery (~2013) History of tonsillectomy Status post hysterectomy Family History Father History of heart disease Hypertension COPD (chronic obstructive pulmonary disease) Mother Hyperlipidemia History of PCOS Grandfather History of heart disease Grandmother Diabetes mellitus History of heart disease Grandfather History of heart disease Social History Smoking Status: Never smoker Smoking Status: Never smoker alcohol intake frequency: holidays/special occasions only Substance Use Type: does not use Exam Initial Vital Signs Initial Vital Signs: Vital Signs Temperature 98.7 F 12/07/22 20:22 Pulse Rate 95 H 12/07/22 20:22 Respiratory Rate 20 12/07/22 20:22 Blood Pressure 151/78 H 12/07/22 20:22 Pulse Oximetry 100 12/07/22 20:22 Oxygen Delivery Method 12/07/22 20:22 General: Insignificant pain, Able to give a complete and coherent history. Well-nourished well-developed HEENT: Moist mucous membranes, normal sclera with reactive pupils, Respiratory: Lungs with Full and symmetrical air movement Cardiac: Regular rate and rhythm no murmurs no bruits Abdomen: Soft, nontender, good bowel tones, no flank pain Pelvis: Tenderness in the left adnexal area without rebound or guarding. No tenderness in the deep left lower quadrant area. No suprapubic tenderness Skin: Warm and dry, no rashes Neurologic: Grossly neurologically intact with no obvious asymmetries or abnormalities Extremities: No trauma, well perfused Psych: Cooperative, appropriate insight and affect Course Orders Ordered: ED Orders 12/07/22 22:57 US pelvic complete Stat 12/08/22 01:22 CT abdomen pelvis w con Stat Discontinued Medications Hydromorphone HCl (Hydromorphone 0.5 Mg Inj) 0.5 mg IV Q15MIN PRN PRN Reason: Pain, Last Admin: 12/08/22 01:33 Dose: 0.5 mg Documented By: Admin: 12/07/22 23:53 Dose: 0.5 mg Documented By: SUZANNA Sodium Chloride (Normal Saline 0.9%) 1,000 mls @ 1,000 mls/hr IV BOLUS ONE Stop: 12/08/22 02:24 Last Infusion: 12/08/22 03:19 Dose: 0 mls/hr Documented By: Admin: 12/08/22 01:33 Dose: 1,000 mls/hr Documented By: JOEL Ketorolac Tromethamine (Ketorolac 30 Mg/Ml Vial) 15 mg IV NOW ONE Stop: 12/07/22 22:50 Last Admin: 12/07/22 23:04 Dose: 15 mg Documented By: SUZANNA Ondansetron HCl (Ondansetron 4 Mg/2 Ml Inj) 4 mg IV NOW ONE Stop: 12/08/22 01:26 Last Admin: 12/08/22 01:33 Dose: 4 mg Documented By: JOEL Oxycodone/Acetaminophen (Oxycodone/Apap 5/325 Prepack) 1 bottle MISC SEEINSTR ONE Stop: 12/08/22 02:56 Last Admin: 12/08/22 03:08 Dose: 1 bottle Documented By: JOEL Vital Signs Vital signs: Vital Signs - 8 hr 12/07/22 23:50 12/08/22 01:02 12/08/22 03:03 Temperature 98 F Pulse Rate 84 85 74 Respiratory Rate 20 20 16 Blood Pressure 105/57 L 98/54 L 105/75 Pulse Oximetry 98 98 100 Oxygen Delivery Method Room Air Room Air Medical Decision Making Lab Data 12/07/22 20:33 12/07/22 20:33 Labs: Lab Results 12/07/22 12/07/22 Range/Units 20:33 20:33 WBC 8.4 (4.5-11.0) X10^3/uL RBC 4.54 (4.0-5.2) X10^6/uL Hgb 13.7 (12.0-16.0) g/dL Hct 38.9 (36-46) % MCV 85.8 (80-100) fL MCH 30.2 (26-34) PG MCHC 35.2 (30-36) % RDW 12.8 (11.6-14.8) % Plt Count 339 (150-400) X10^3/uL Neut % (Auto) 51.4 (50-75) % Lymph % (Auto) 34.3 (25-40) % [place] % (Auto) 8.0 (3-14) % Eos % (Auto) 5.9 H (2-4) % Baso % (Auto) 0.4 (0-2) % Neut # (Auto) 4300 (5561-9231) /uL Lymph # (Auto) 2900 (2948-4427) /uL [place] # (Auto) 700 (0-900) /uL Eos # (Auto) 500 H (0-450) /uL Baso # (Auto) 0 (0-100) /uL Sodium 138 (137-145) mmol/L Potassium 3.7 (3.4-5.1) mmol/L Chloride 103 (98-107) mmol/L Carbon Dioxide 27 (22-32) mmol/L BUN 17 (7-17) mg/dL Creatinine 0.62 (0.52-1.04) mg/dL Estimated GFR > 60 (>60) mL/min BUN/Creatinine Ratio 27.4 H (6-22) Glucose 83 (70-100) mg/dL Calcium 8.8 (8.4-10.2) mg/dL Total Bilirubin 0.4 (0.2-1.3) mg/dL AST 28 (14-36) IU/L ALT 21 (<35) IU/L Alkaline Phosphatase 50 (38-126) U/L Total Protein 7.6 (6.3-8.2) g/dL Albumin 4.2 (3.5-5.0) g/dL Globulin 3.4 (1.7-4.1) g/dL Albumin/Globulin Ratio 1.2 (1.0-2.8) Imaging Data pelvic US: Radiologist's Impression: FINDINGS:? ?? Uterus:? Surgically absent. ? Ovaries:? The right ovary was not well seen due to bowel..? Evaluation of the left ovary also limited due to adjacent bowel loops.? The left ovary appears within normal size limits.? There is patent arterial and venous flow demonstrated in the ovary.? No adnexal mass identified. ? Other:? No pathologic free abdominal or pelvic fluid. ? ? IMPRESSION:? ? 1. Limited study due to prominent bowel loops in the adnexa bilaterally. ? 2. No evidence of left ovarian torsion.? ? ? We strive to produce accurate, complete, and clear reports of imaging services. To assist us in improving patient care, this report was composed using standard report templates and voice recognition software. Therefore, it may contain abnormal punctuation, insertions and/or omissions. Occasional wrong-word or sound-alike substitutions may occur. Though we review the report and make efforts to correct it, we do recommend that the report be read carefully in proper context to recognize any text inaccuracies. ? ? Dictated by: Chapin Etienne M.D. on 12/08/2022 at 0:59 ? ? CT scan - abdomen/pelvis: Radiologist's Impression: FINDINGS:? Image quality:? Excellent.? ? Lung bases:? There is mild dependent atelectasis.? ? Heart:? Heart is normal in size. ? ? ABDOMEN: Liver:? No mass lesion. Gallbladder:? Within normal limits without calcified gallstones.? ? Biliary ducts:? No biliary ductal dilatation.? ? Pancreas:? Unremarkable.? ? Spleen:? Normal in size.? ? Adrenal Glands:? No adrenal nodules.? ? Kidneys and Ureters:? No hydronephrosis.? ? ? Stomach and Bowel:? Stomach, small bowel loops, and colon are normal in caliber and wall thickness.? The appendix is normal in appearance.? There is colonic diverticulosis without acute diverticulitis. Peritoneum:? No abnormal intraperitoneal fluid.? No free air.? ? Ventral Wall: ? No hernia.? Abdominal Nodes:? No retroperitoneal or mesenteric adenopathy by size criteria.? Vessels:? Aorta and inferior vena cava are normal in size.? ? PELVIS: Pelvic Organs:? The uterus appears surgically absent.? ? Bladder:? Unremarkable.? ? Pelvic Nodes: No enlarged lymph nodes.? Miscellaneous: No inguinal hernias are seen. ? ? ? Bones:? Visualized osseous structures demonstrate no suspicious focal lesions. ? IMPRESSION:? ? 1. No acute intra-abdominal abnormality. ? 2. Colonic diverticulosis without acute diverticulitis. ? 3. No evidence of obstructive uropathy.? ? ? Dictated by: Chapin Etienne M.D. on 12/08/2022 at 1:43 ? ? MDM Narrative Medical decision making narrative: CC: 24 hours of severe left adnexal pain. This is a new problem, unknown diagnosis with potential for significant systemic symptoms Complicating co-morbidities: Prior history of ovarian cysts. Corroborating data: Data collected from: patient, Medical records reviewed: Recent abdominal CT and pelvic ultrasounds were reviewed Differential considered: Ruptured cyst, ovarian torsion, diverticulitis, nephrolithiasis, other intra-abdominal infection, bladder infection, she does not have a uterus and I do not suspect pelvic inflammatory disease Exam documented above, pertinent findings include: Significant left adnexal tenderness without rebound or guarding. Remainder of exam is benign Lab Test results independently reviewed as above. Pertinent findings: CBC is unremarkable Chemistries are unremarkable Imaging studies independently reviewed: Pelvic ultrasound shows no ovarian cyst or ovarian torsion. It does not give a full explanation for the severe pain that she is experiencing Consultations: Treatments: IV fluid, Toradol, parenteral narcotics Re-evaluations: 130am patient is re-evaluated after the ultrasound results return. She continues to pain significant enough that she is quietly crying and clutching her left lower abdomen despite parenteral narcotics. Abdominal exam continues to be relatively benign, certainly not a surgical abdomen at this time. No skin changes to suggest zoster. With the degree of pain that she is demonstrating a CT scan of the abdomen will be obtained. It is noted that she had a similar presentation on November 19 with negative pelvic ultrasound and negative abdominal CT. She does have follow-up scheduled with signal operator linguist in the near future. Discussion: CT scan returns entirely unremarkable. No obvious explanation for the severe left lower quadrant pain is identified with this emergency department visit. She is hemodynamically stable and safe for discharge home. Will give her a small prescription for oxycodone to help with acute pain. 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 She may simply need diagnostic laparoscopy to see if there is additional findings such as continued endometriosis to explain the severe pain that she is continuing to struggle with. At this point there are no life-threatening abnormalities, no acute surgical findings, she does not have a surgical abdomen and she is safe for discharge home Disposition: see below, along with detailed discharge instructions that have been reviewed with patient as well as indications for ED re-evaluation and additional outpatient follow up Discharge Plan Departure Patient Disposition: Home Clinical Impression: Abdominal pain, LLQ Instructions: DI for Pelvic Pain Activity Restrictions/Additional Instructions: Thank you for coming in today So sorry that you are struggling with this continued left lower quadrant pain. Workup again today shows no significant abnormalities. Specifically there is no ovarian torsion, ovarian cyst, intra-abdominal infection, need for acute surgical intervention, kidney stones, kidney infection or bladder infection. It is okay to use ibuprofen, Tylenol and the Percocet that you have available as needed. You are going to need follow-up with your OBGYN and may need exploratory laparoscopy to simply look and see if there is anything else that might be causing this pain such as recurrent endometriosis If you find that you are getting worse or develop any new symptoms, please feel free to return to the emergency department for further evaluation. I wish you the best Prescriptions: No Action phentermine 37.5 mg capsule 37.5 mg PO DAILY Qty: 30 2RF Rx Instructions: must administer 30 minutes before or 1-2 hours after breakfast spironolactone 25 mg tablet 25 mg PO DAILY cholecalciferol (vitamin D3) 75 mcg (3,000 unit) tablet 75 mcg PO DAILY oxycodone-acetaminophen [Percocet] 5-325 mg tablet 1 tab PO Q8H PRN (Reason: pain) Qty: 10 0RF ibuprofen 600 mg tablet 600 mg PO Q6-8H PRN (Reason: pain) Qty: 30 0RF polyethylene glycol 3350 [Miralax] 17 gram/dose powder 17 g PO DAILY PRN (Reason: constipation) Qty: 238 0RF ondansetron 4 mg tablet,disintegrating 4 mg PO Q8H PRN (Reason: nausea and vomiting) Qty: 14 0RF Referrals: Gifty Arzola DO [Primary Care Provider] - Stand Alone Forms: Patient Portal/API, Work Release Note
--- NOTE | 2022-12-07 22:57 | DI.US.S_ITS ---
PROCEDURE: US PELVIC COMPLETE INDICATIONS: SEVERE LEFT ADNEXAL PAIN TECHNIQUE: Real-time scanning was performed of the pelvic organs, with image documentation. Additional endovaginal scanning was necessary due to incomplete visualization of the adnexal and endometrial structures by transabdominal scanning. COMPARISON: [facility], , US PELVIC COMPLETE, 11/19/2022, 16:31. FINDINGS: Uterus: Surgically absent. Ovaries: The right ovary was not well seen due to bowel.. Evaluation of the left ovary also limited due to adjacent bowel loops. The left ovary appears within normal size limits. There is patent arterial and venous flow demonstrated in the ovary. No adnexal mass identified. Other: No pathologic free abdominal or pelvic fluid. IMPRESSION: 1. Limited study due to prominent bowel loops in the adnexa bilaterally. 2. No evidence of left ovarian torsion. We strive to produce accurate, complete, and clear reports of imaging services. To assist us in improving patient care, this report was composed using standard report templates and voice recognition software. Therefore, it may contain abnormal punctuation, insertions and/or omissions. Occasional wrong-word or sound-alike substitutions may occur. Though we review the report and make efforts to correct it, we do recommend that the report be read carefully in proper context to recognize any text inaccuracies. Dictated by: Chapin Etienne M.D. on 12/08/2022 at 0:59 Approved by: Chapin Etienne M.D. on 12/08/2022 at 1:02
[2022-12-07] MEDS: KETOROLAC 30 MG/ML VIAL 15 MG IV (23:04)
[2022-12-07 23:14] LABS: Add Manual Diff / Slide Review NO; Alanine Aminotransferase 21 IU/L (<35); Albumin 4.2 g/dL (3.5-5.0); Albumin Globulin Ratio 1.2 (1.0-2.8); Alkaline Phosphatase 50 U/L (38-126); Aspartate Aminotransferase 28 IU/L (14-36); BUN Creatinine Ratio 27.4 (6-22); Basophils Absolute Auto 0 /uL (0-100); Basophils Percent Auto 0.4 % (0-2); Bilirubin Total 0.4 mg/dL (0.2-1.3); Blood Urea Nitrogen 17 mg/dL (7-17); Calcium 8.8 mg/dL (8.4-10.2); Carbon Dioxide 27 mmol/L (22-32); Chloride 103 mmol/L (98-107); Eosinophils Absolute Auto 500 /uL (0-450); Eosinophils Percent Auto 5.9 % (2-4); Estimated Glomerular Filt Rate > 60 mL/min (>60); Globulin 3.4 g/dL (1.7-4.1); Glucose 83 mg/dL (70-100); HEMOLYSIS < 15 (0-50); Hematocrit 38.9 % (36-46); Hemoglobin 13.7 g/dL (12.0-16.0); Lymphocytes Absolute Auto 2900 /uL (1100-4500); Lymphocytes Percent Auto 34.3 % (25-40); Mean Corpuscular HGB Conc 35.2 % (30-36); Mean Corpuscular Hemoglobin 30.2 PG (26-34); Mean Corpuscular Volume 85.8 fL (80-100); Monocytes Absolute Auto 700 /uL (0-900); Neutrophils Absolute Auto 4300 /uL (1500-7000); Neutrophils Percent Auto 51.4 % (50-75); Platelet Count 339 X10^3/uL (150-400); Potassium 3.7 mmol/L (3.4-5.1); Red Blood Cell Count 4.54 X10^6/uL (4.0-5.2); Red Cell Distribution Width 12.8 % (11.6-14.8); Sodium 138 mmol/L (137-145); Total Protein 7.6 g/dL (6.3-8.2); White Blood Cell Count 8.4 X10^3/uL (4.5-11.0)
[2022-12-07 23:50] VITALS: BP 105/57; PULSE 84; RESP 20; O2SAT 98
[2022-12-07] MEDS: HYDROMORPHONE 0.5 MG INJ IV (23:53)
[2022-12-08 01:02] VITALS: BP 98/54; PULSE 85; RESP 20; O2SAT 98
--- NOTE | 2022-12-08 01:22 | DI.CT.S_ITS ---
/PROCEDURE: CT ABDOMEN PELVIS W CON INDICATIONS: severe LLQ pain TECHNIQUE: After the administration of IV contrast, axial sections were acquired from the lung bases to the pubic symphysis. Coronal and sagittal reformats were performed. For radiation dose reduction, the following was used: automated exposure control, adjustment of mA and/or kV according to patient size. COMPARISON: [facility], CT, CT ABDOMEN PELVIS W CON, 11/19/2022, 15:40. FINDINGS: Image quality: Excellent. Lung bases: There is mild dependent atelectasis. Heart: Heart is normal in size. ABDOMEN: Liver: No mass lesion. Gallbladder: Within normal limits without calcified gallstones. Biliary ducts: No biliary ductal dilatation. Pancreas: Unremarkable. Spleen: Normal in size. Adrenal Glands: No adrenal nodules. Kidneys and Ureters: No hydronephrosis. Stomach and Bowel: Stomach, small bowel loops, and colon are normal in caliber and wall thickness. The appendix is normal in appearance. There is colonic diverticulosis without acute diverticulitis. Peritoneum: No abnormal intraperitoneal fluid. No free air. Ventral Wall: No hernia. Abdominal Nodes: No retroperitoneal or mesenteric adenopathy by size criteria. Vessels: Aorta and inferior vena cava are normal in size. PELVIS: Pelvic Organs: The uterus appears surgically absent. Bladder: Unremarkable. Pelvic Nodes: No enlarged lymph nodes. Miscellaneous: No inguinal hernias are seen. Bones: Visualized osseous structures demonstrate no suspicious focal lesions. IMPRESSION: 1. No acute intra-abdominal abnormality. 2. Colonic diverticulosis without acute diverticulitis. 3. No evidence of obstructive uropathy. Dictated by: Chapin Etienne M.D. on 12/08/2022 at 1:43 Approved by: Chapin Etienne M.D. on 12/08/2022 at 1:46
[2022-12-08] MEDS: SODIUM CHLORIDE 0.9% 1,000 ML 1000 ML IV (01:33)
[2022-12-08] MEDS: ONDANSETRON 4 MG/2 ML INJ IV (01:33)
[2022-12-08] MEDS: HYDROMORPHONE 0.5 MG INJ IV (01:33)
[2022-12-08 03:03] VITALS: BP 105/75; PULSE 74; RESP 16; TEMP 36.6; O2SAT 100
[2022-12-08] MEDS: OXYCODONE/APAP 5/325 PREPACK 1 BOTTLE MISC (03:08)
== END 2022-12-08 03:30 | disposition home or self-care (01) ==
PROVIDERS: Emergency Provider Emergency Medicine; PCP Family Medicine
DX: R10.32 Left lower quadrant pain (principal)
CPT/HCPCS: 36415; 74177; 76830; 76856; 80053; 85025; 93975; 96361; 96374; 96375; 96376; 99284; J1170; J1885; J2405; Q9967

== ENCOUNTER → 2022-12-30 07:38 | Outpatient (CLI) | payer BC, OTHER, SELFPAY ==
--- NOTE | 2022-12-30 07:40 | DI.US.S_ITS ---
PROCEDURE: US PELVIC COMPLETE INDICATIONS: LEFT OVARY FOLLOW UP FROM ULTRASOUNDS 11/19/22 AND 12/08/22 TECHNIQUE: Real-time scanning was performed of the pelvic organs, with image documentation. Additional endovaginal scanning was necessary due to incomplete visualization of the adnexal and endometrial structures by transabdominal scanning. COMPARISON: [facility], CT, CT ABDOMEN PELVIS W CON, 12/08/2022, 1:38. [facility], US, US PELVIC COMPLETE, 11/19/2022, 16:31. [facility], US, US PELVIC COMPLETE, 12/08/2022, 0:00. FINDINGS: Uterus: Status post hysterectomy. Ovaries: The right ovary measures 4.1 x 1.9 x 1.8 cm, with a calculated ovarian volume of 7.3 cc. Right ovary appears normal. The left ovary is not well visualized due to bowel within the pelvis. Other: No pathologic free abdominal or pelvic fluid. IMPRESSION: 1. Left ovary not visualized due to bowel within the pelvis. 2. Normal appearance of the right ovary. We strive to produce accurate, complete, and clear reports of imaging services. To assist us in improving patient care, this report was composed using standard report templates and voice recognition software. Therefore, it may contain abnormal punctuation, insertions and/or omissions. Occasional wrong-word or sound-alike substitutions may occur. Though we review the report and make efforts to correct it, we do recommend that the report be read carefully in proper context to recognize any text inaccuracies. Approved by: Aldo Asher M.D. on 12/30/2022 at 10:45
== END ==
PROVIDERS: PCP Family Medicine; Referring Provider Obstetrics & Gynecology; Visit Provider Obstetrics & Gynecology
DX: N83.8 Other noninflammatory disorders of ovary, fallopian tube and broad ligament (principal); Z90.710 Acquired absence of both cervix and uterus
CPT/HCPCS: 76830; 76856

== ENCOUNTER → 2022-12-31 09:59 | Outpatient (CLI) | payer BC, OTHER, SELFPAY ==
[2022-12-31 11:22] LABS: Cancer Antigen 125 9.4 U/mL (0-35)
== END ==
PROVIDERS: PCP Family Medicine; Referring Provider Obstetrics & Gynecology; Visit Provider Obstetrics & Gynecology
DX: N83.8 Other noninflammatory disorders of ovary, fallopian tube and broad ligament (principal)
CPT/HCPCS: 36415; 86304

== ENCOUNTER → 2023-02-27 13:27 | Outpatient (CLI) | payer BC, OTHER, SELFPAY ==
--- NOTE | 2023-02-27 13:29 | DI.MG.S_ITS ---
BILATERAL DIGITAL DIAGNOSTIC MAMMOGRAM 3D/2D: 02/27/2023 CLINICAL: Palpable right breast lump by patient x's 3 weeks. No CBE. Baseline exam. No prior exams were available for comparison. Both breasts are extremely dense, which lowers the sensitivity of mammography (category d />75% glandular tissue). There is a focal asymmetry in the right breast at 11 o'clock posterior depth. This correlates as palpated. There is architectural distortion associated with the focal asymmetry. No other significant masses, calcifications, or other findings are seen in either breast. IMPRESSION: INCOMPLETE: NEEDS ADDITIONAL IMAGING EVALUATION The focal asymmetry in the right breast is indeterminate. A targeted ultrasound of the right breast is recommended and will be performed immediately following this exam. Based on the Tyrer Cuzick model (a risk assessment model) the patient's lifetime risk is 15.3% and her 10 year risk is 1.0%. According to the ACR, ACS, and NCCN guidelines, an annual breast MRI exam along with mammogram is recommended if the patient's lifetime risk is 20% or greater. This exam was interpreted at Station ID: [id number]. NOTE: For mammograms, a report in lay terms will be sent to the patient. Approximately 15% of breast malignancies will not be visualized mammographically. In the management of a palpable breast mass, a negative mammogram must not discourage biopsy of a clinically suspicious lesion. Electronically Signed By: Jolly medrano/:02/27/2023 14:27:52 ACR BI-RADS Category 0: Incomplete 3340F
--- NOTE | 2023-02-27 13:29 | DI.US.S_ITS ---
ULTRASOUND OF RIGHT BREAST: 02/27/2023 CLINICAL: Palpable right breast lump and focal pain. Comparison is made to exam dated: 02/27/2023 mammogram - [facility]. Color flow and real-time ultrasound of the right breast were performed on the areas of interest. Hartman scale images of the real-time examination were reviewed. There is an irregular mass with a spiculated margin in the right breast at 10 o'clock posterior depth. This irregular mass is hypoechoic. This correlates as palpated and with mammography findings. Color flow imaging demonstrates that there is increased vascularity. No right axillary adenopathy. IMPRESSION: HIGHLY SUGGESTIVE OF MALIGNANCY No right axillary adenopathy. The irregular mass in the right breast is highly suggestive of malignancy. An ultrasound guided biopsy is recommended. This exam was interpreted at Station ID: [id number]. SUMMARY: This was discussed with the patient by the radiologist Dr. Low at the time of the exam. Electronically Signed By: Jolly medrano/:02/27/2023 14:49:19 Entry: - 03/02/2023 11:52:55 letter sent: Biopsy Required Ultrasound BI-RADS: 5 Highly suggestive of malignancy
== END ==
PROVIDERS: PCP Family Medicine; Referring Provider Obstetrics & Gynecology; Visit Provider Obstetrics & Gynecology
DX: N63.11 Unspecified lump in the right breast, upper outer quadrant (principal); R92.8 Other abnormal and inconclusive findings on diagnostic imaging of breast
CPT/HCPCS: 76642; 77066; G0279

== ENCOUNTER → 2023-03-13 07:39 | Outpatient (CLI) | payer BC, OTHER, SELFPAY ==
--- NOTE | 2023-03-13 | DI.MG.S_ITS ---
UNILATERAL RIGHT DIGITAL DIAGNOSTIC MAMMOGRAM 3D/2D: 03/13/2023 CLINICAL: Post right breast ultrasound biopsy clip placement imaging. Comparison is made to exam dated: 02/27/2023 mammogram - [facility]. Current study contains 2 films. The right breast is extremely dense, which lowers the sensitivity of mammography (category d />75% glandular tissue). There is a marker clip in the appropriate position in the right breast at 10 o'clock middle depth. This marker clip placement is at the biopsy site. IMPRESSION: POST PROCEDURE MAMMOGRAM FOR MARKER PLACEMENT There was a successful marker clip placement in the right breast middle depth. Based on the Tyrer Cuzick model (a risk assessment model) the patient's lifetime risk is 15.3% and her 10 year risk is 1.0%. According to the ACR, ACS, and NCCN guidelines, an annual breast MRI exam along with mammogram is recommended if the patient's lifetime risk is 20% or greater. This exam was interpreted at Station ID: [id number]. NOTE: For mammograms, a report in lay terms will be sent to the patient. Approximately 15% of breast malignancies will not be visualized mammographically. In the management of a palpable breast mass, a negative mammogram must not discourage biopsy of a clinically suspicious lesion. Electronically Signed By: Jag islas/phyllis:03/13/2023 13:19:51 ACR BI-RADS Category Post-procedure mammogram for marker placement
--- NOTE | 2023-03-13 | PATH_ITS ---
[facility] Accession Number: [id number] No. of containers..01 Tissue . 01 Material submitted: . breast - RIGHT BREAST 10:00 8CMFN MASS . 01 Diagnosis: Right Breast, 10 o'clock, 8 cm From Nipple, Image-Guided Core Biopsy: Fibrocystic change and rare microcalcification. Negative for significant atypia and malignancy. MRV 03/16/2023 1823 Local . 01 Electronically signed: . Sujatha Sanders MD, Pathologist NPI- [id number] . 01 Gross description: . The specimen is received in formalin labeled with the patient's name, , and right breast 10 o'clock 8 cm FN, and consists of three yellow to samuel needle core biopsies ranging in length from 0.9 to 1.4 cm and averaging 0.2 cm in diameter. The specimen is inked orange and is submitted entirely in cassette A1. . The specimen was removed on 03/13/2023 at 1024 hours, time in formalin not provided, cold ischemic time cannot be calculated, total fixation time is approximately 51 hours. ([id number]) /DANIEL 03/16/2023 0959 Local . 01 Pathologist provided ICD-10: N63.10 . 01 CPT . 162584 Specimen Comment: A courtesy copy of this report has been sent to [phone] Performed at: [facility] [address] [place] [id number] MD Chapin Albright MD Phone: [phone]
--- NOTE | 2023-03-13 07:40 | DI.US.S_ITS ---
ULTRASOUND GUIDED BIOPSY RIGHT BREAST USING VACUUM DEVICE WITH MARKING DEVICE INSERTED AND POST DIGITAL MAMMOGRAPHIC IMAGIN03/13/2023 CLINICAL: Right breast mass. PATIENT CONSENT: Risks (minor bleeding, infection, vasovagal reaction and repeat procedure), benefits and alternatives were explained to the patient and written informed consent was obtained. Correlation is made to exams dated: 03/13/2023 mammogram, 02/27/2023 ultrasound, and 02/27/2023 mammogram - [facility]. An ultrasound guided biopsy using real-time ultrasound was performed for the irregular shaped asymmetry located in the right breast at 10 o'clock middle depth. This was described on the previous ultrasound report. The skin was prepped in the usual manner. Local anesthetic was administered to the access site. A small incision was made in the breast. The abnormality was approached from the lateral aspect. A biopsy needle was placed adjacent to the abnormality under ultrasound guidance. Once the needle was documented to be in the correct location, four specimens were obtained using the Mammotome biopsy system. The patient received additional local anesthetic during the procedure. A clip was inserted into the biopsy cavity. A skin adhesive was applied to the access site. Post procedure digital mammographic imaging demonstrates the location device at the targeted area. The specimens were sent to the laboratory for pathological analysis. IMPRESSION: ULTRASOUND GUIDED BIOPSY BENIGN Ultrasound guided biopsy of the asymmetry in the right breast at 10 o'clock middle depth was successful with no apparent post procedure complications. Pathology indicates benign fibrocystic changes (FC). Pathology results are discordant with ultrasound and biopsy findings. Ultrasound findings are highly suggestive of malignancy and benign fibrocystic changes are discordant. This exam was interpreted at Station ID: [id number]. Jag islas,acr/:03/18/2023 17:06:44
== END ==
PROVIDERS: PCP Family Medicine; Referring Provider Obstetrics & Gynecology; Visit Provider Obstetrics & Gynecology
DX: N60.11 Diffuse cystic mastopathy of right breast (principal)
CPT/HCPCS: 19083; 77065

== ENCOUNTER 2023-03-17 06:24 | Day surgery (SDC) | payer BC, OTHER, SELFPAY ==
[2023-03-11 09:32] VITALS: BMI 31.4
[2023-03-17] VITALS (8 sets, daily range): BP systolic 101–118; BP diastolic 60–81; PULSE 70–98; RESP 10–18; TEMP 36.2–36.4; O2SAT 94–100; BMI 31.4
[2023-03-17] MEDS: LACTATED RINGERS 1,000 ML 42 ML IV ×2 (06:55→09:50)
--- NOTE | 2023-03-17 07:32 | PM.GYNHP.1 ---
History of Present Illness History of Present Illness Reason for admission: pelvic pain Narrative: Mitzi West is a 33 year old female 0 who presents for a diagnostic laparoscopy with possible fulguration of endometriosis. Patient has a known history of endometriosis that was found at the time of her hysterectomy. She has been having pain for the last several months. [facility]LY [facility] Medical History (Updated 03/02/23 @ 09:08 by Aries Mccann MD) Acne (~2006) Chicken pox History of PCOS (~2004) Obesity (BMI 30.0-34.9) Ovarian cyst (~2004) Painful menstrual periods (~2004) Scalp psoriasis (~1999) Surgical History (Updated 03/11/23 @ 09:38 by Radha Morris RN) Anesthesia History of mandibular surgery (~2013) History of tonsillectomy Hx of tubal ligation Status post hysterectomy Family History Father History of heart disease Hypertension COPD (chronic obstructive pulmonary disease) Mother Hyperlipidemia History of PCOS Grandfather History of heart disease Grandmother Diabetes mellitus History of heart disease Grandfather History of heart disease Social History marital status: household members: spouse lives independently: Yes occupational status: employed Smoking Status: Never smoker alcohol intake: current substance use type: does not use Meds Home Medications and Allergies Home Medications Medication Instructions Recorded Confirmed Type ibuprofen 600 mg tablet 600 mg PO Q6-8H PRN pain #30 tabs 11/19/22 03/17/23 Rx ondansetron 4 mg disintegrating 4 mg PO Q8H PRN nausea and 11/19/22 03/17/23 Rx tablet vomiting #14 tabs polyethylene glycol 3350 17 17 g PO DAILY PRN constipation 11/19/22 03/17/23 Rx gram/dose oral powder (Miralax) #238 grams sodium sul 1.479 gram-potas ch See Rx Instructions PO PER PKG DIR 03/04/23 Rx 0.188 gram-magnes sul 0.225 gram #24 tabs tablet (Sutab) Allergies Allergy/AdvReac Type Severity Reaction Status Date / Time Sulfa (Sulfonamide Allergy Hives Verified 03/17/23 06:38 Antibiotics) watermelon AdvReac Intermediate Hives Verified 03/17/23 06:38 doxycycline AdvReac Vomiting Verified 03/17/23 06:38 latex AdvReac Rash Verified 03/17/23 06:38 Exam Vital Signs (past 8 hours): - 03/17/23 06:52 Temperature 97.5 F L Pulse Rate 87 Respiratory Rate 18 Blood Pressure 102/68 Pulse Oximetry 96 Oxygen Delivery Method Room Air Oxygen Delivery Method Room Air Narrative Exam Narrative: HEENT: No thyromegaly, no anterior cervical or supraclavicular lymphadenopathy. Lungs:Clear to auscultation bilaterally, no wheezes. Cardiovascular: Regular rate and rhythm, no murmurs, rubs, or gallops. Abdomen: Well-healed laparoscopy scars. No hepatosplenomegaly. No masses palpable. External genitalia: Normal Vagina: Normal Cervix: Nulliparous Bimanual exam: [7 Week size uterus. Mobile.] Bilateral uterus sacral tenderness. Bilateral adnexal tenderness. Extremities: No edema Assessment & Plan Assessment & Plan narrative: Assessment: 33-year-old 0 with a history of endometriosis, now with persistent pelvic pain Plan: Diagnostic laparoscopy with possible fulguration of endometriosis The risks, benefits, and alternatives to the procedure were explained to the patient. The risks including bleeding, infection, injury to the bowel, bladder, or ureters. She understands these risks and agrees to proceed. A full par Q was held and consent form was signed. Time Spent With Patient Time with patient: less than 30 minutes
--- NOTE | 2023-03-17 07:46 | PM.PREOP ---
Pre-operative Note Interval Note History & Physical reviewed/Exam performed by Physician: Yes Changes to H&P: No
[2023-03-17] MEDS: ACETAMINOPHEN IV 1,000 MG/100 ML VIAL 400 MG IV (08:00)
--- NOTE | 2023-03-17 08:44 | SUR.OPER ---
Lithotomy on padded OR bed, head on pillow, arms secured on padded arm boards at <90 degrees abduction. Legs secured in padded yellow fins stirrups.
[2023-03-17] MEDS: BUPIVACAINE 0.5% (PF) 30 ML, EPINEPHrine 0.15 MG INJ (08:57)
--- NOTE | 2023-03-17 09:21 | SUR.OPER ---
Lithotomy on padded OR bed, head on pillow, arms secured on padded arm boards at <90 degrees abduction. Legs secured in padded yellow fins stirrups.
--- NOTE | 2023-03-17 09:35 | PM.OP.1 ---
Operative Date/Time/Diagnoses Date of procedure: 03/17/23 Time of procedure: 09:35 Pre-op diagnosis: Rectal bleeding Post-op diagnosis: other (Internal hemorrhoids) Procedure & Clinicians Procedure: Colonoscopy and hemorrhoidal banding x2 Same procedure as scheduled: Yes Indications: 33-year-old woman with rectal bleeding here for diagnostic colonoscopy and hemorrhoidal banding. Surgeon: Aries Mccann Anesthesia Type: General Operative Notes Findings: Grade 2 internal hemorrhoids otherwise unremarkable Specimen(s): none sent Estimated Blood Loss (mL): 0 Procedure in detail: The history and physical was performed/updated and the patient is ASA class is 2. The procedure was discussed in detail with the patient. Potential risks complications including infection, bleeding, missed diagnosis, perforation, need for surgery, and were explained. Their questions were answered and informed consent was obtained. Patient was brought to the procedure room and placed standard monitoring equipment. The patient's vital signs were monitored continuously throughout the entire procedure. Prior to starting time-out was performed. The patient was placed in the left lateral recumbent position. Procedural sedation was administered by anesthesia. Examination began with a thorough inspection of the perianal area there was no evidence of fissures, fistulae, external hemorrhoids or cutaneous malignancy. The colonoscopy scope was then placed into the anal canal and was advanced to the cecum, which was identified by the ileocecal valve, the appendiceal orifice and the confluence of the taenia. The scope was then slowly withdrawn examining colon thoroughly in all directions, irrigating it of any residual stool. Unremarkable colonoscopy. No masses polyps or inflammation. Grade 2 internal hemorrhoids. Following completion of the colonoscopy an anoscope was placed into the rectum. Grade 2 internal hemorrhoids were present in the left lateral and right posterior positions. Each pedicle was grasped with the suction device and then doubly ligated at its base. She tolerated the procedure well she was transferred to recovery stable condition The patient tolerated the procedure well. They will be discharged once criteria are met. The prep was of good/excellent quality. The withdrawl time was 6 minutes. Complications: none Post-operative Disposition: same day surgery
[2023-03-17] MEDS: KETOROLAC 30 MG/ML VIAL IV (09:43)
[2023-03-17] MEDS: ONDANSETRON 4 MG/2 ML INJ IV (09:47)
--- NOTE | 2023-03-17 09:58 | SUR.PHASEI ---
Patient reported nausea improving.
[2023-03-17] MEDS: OXYCODONE IR 5 MG TABLET PO (09:59)
--- NOTE | 2023-03-17 10:38 | SUR.PHASEII ---
Pt given discharge instructions. Pt states she understands discharge instructions. Pt to be discharged with her . Pt states her pain is tolerable and that she is no longer nauseated. Pt states she is ready to go home.
--- NOTE | 2023-03-17 11:35 | PM.GYNOP.1 ---
Operative Date/Time/Diagnoses Date of procedure: 03/17/23 Time of procedure: 11:36 Pre-op diagnosis: Pelvic pain History of endometriosis Post-op diagnosis: same Procedure & Clinicians Procedure: Procedures Operation Date: 03/17/23 07:45 Actual Procedure Side Surgeon jose g AZEVEDO Laparoscopy, lysis of adhesions, Fulguration Endometriosis Trisha Russell MD s Colonoscopy with Hemorrhoid Banding Aries Mccann MD Indications: Pelvic pain History of endometriosis Surgeon: Trisha Russell Anesthesia Type: General and Local Operative Notes Findings: Uterus and tubes absent Normal ovaries bilaterally No evidence of endometriosis Normal liver and gallbladder Closure Type: primary Specimen(s): none Estimated blood loss (mL): 5 Blood products transfused: none Procedure in detail: After informed consent was obtained, the patient was taken to the operating room where she was placed in the dorsal supine position. After adequate general endotracheal anesthesia was achieved, she was placed in the dorsal lithotomy position, and prepped and draped in the usual sterile fashion. A moistened sponge stick was placed into the vagina. Attention was then turned to the abdomen where 6 cc of 0.5% Marcaine with epinephrine were injected in the umbilical fold. A 5 mm incision was made. The Veress needle was placed into the peritoneal cavity, and its placement confirmed by aspiration and drop test. Upon insufflation the opening pressures were high. The Veress needle was adjusted and this continued. A decision was made to proceed with an open Condon. The incision was extended to 1.5 cm. The incision was carried down to the fascia. The fascia was nicked in the midline and the incision extended superiorly and inferiorly. The peritoneum was identified, grasped between 2 hemostats, and entered sharply with the Metzenbaum scissors. The trocar was placed into the peritoneal cavity and the balloon cuff insufflated. The abdomen was then insufflated with 4.2 L of CO2. Upon initial inspection the pelvis appeared normal. A second incision was made 4 cm left lateral to the midline after 6 cc of 0.5% Marcaine with epinephrine were injected. A 5 mm incision was made. A long 5 mm trocar was placed under direct visualization. The probe was used to visualize the pelvis. Both ovaries were seen and were normal. These were tacked up out of the pelvis. The vaginal cuff was intact without any adhesions. There was no evidence of endometriosis in the cul-de-sac or ovarian fossa. The liver and gallbladder were examined and were found to be normal. The instruments were removed from the abdomen. The CO2 was allowed to escape. The umbilical incision was closed on the fascia with 0 Vicryl in a running fashion. Two simple interrupted sutures were placed in the subcutaneous layer to reapproximate. Both incisions were closed with 4-0 Monocryl in a subcuticular fashion. Steri-Strips and Allevyn dressings were placed. The moistened sponge stick was removed from the vagina. Sponge, lap, and instrument counts were correct x2. The patient tolerated the procedure well, and was taken to PACU in stable condition. Complications: none Post-operative Condition: stable Disposition: PACU Plan for aftercare: Home after recovery
== END 2023-03-17 10:42 | disposition home or self-care (01) ==
PROVIDERS: Obstetrics & Gynecology; PCP Family Medicine; Referring Provider Surgery; Visit Provider Surgery
PROC: 0U5B4ZZ Destruction of Endometrium, Percutaneous Endoscopic Approach (ICD-10-PCS; CPT 58662; principal; 2023-03-17 07:45)
PROC: 0DJD8ZZ Inspection of Lower Intestinal Tract, Via Natural or Artificial Opening Endoscopic (ICD-10-PCS; CPT 45378; 2023-03-17 07:45)
DX: K62.5 Hemorrhage of anus and rectum (principal); K64.1 Second degree hemorrhoids
CPT/HCPCS: 45378; 46221; J0131; J0171; J1100; J1885; J2250; J2405; J2704; J3010

== ENCOUNTER → 2023-03-26 12:36 | Outpatient (CLI) | payer BC, OTHER, SELFPAY ==
--- NOTE | 2023-03-26 | DI.MG.S_ITS ---
UNILATERAL RIGHT DIGITAL DIAGNOSTIC MAMMOGRAM 3D/2D: 03/26/2023 CLINICAL: Right post clip. Comparison is made to exams dated: 03/13/2023 ultrasound biopsy, 03/13/2023 mammogram, and 02/27/2023 ultrasound - [facility]. The right breast is extremely dense, which lowers the sensitivity of mammography (category d />75% glandular tissue). There is a marker clip in the appropriate position in the right breast at 10 o'clock posterior depth. This correlates with ultrasound findings and the biopsy. IMPRESSION: POST PROCEDURE MAMMOGRAM FOR MARKER PLACEMENT There was a successful marker clip placement in the right breast posterior depth. Based on the Tyrer Cuzick model (a risk assessment model) the patient's lifetime risk is 15.3% and her 10 year risk is 1.0%. According to the ACR, ACS, and NCCN guidelines, an annual breast MRI exam along with mammogram is recommended if the patient's lifetime risk is 20% or greater. This exam was interpreted at Station ID: [id number]. NOTE: For mammograms, a report in lay terms will be sent to the patient. Approximately 15% of breast malignancies will not be visualized mammographically. In the management of a palpable breast mass, a negative mammogram must not discourage biopsy of a clinically suspicious lesion. Electronically Signed By: Hitesh Tabares M.D. aty/:03/27/2023 08:11:35 ACR BI-RADS Category Post-procedure mammogram for marker placement
--- NOTE | 2023-03-26 | PATH_ITS ---
[facility] Accession Number: [id number] No. of containers..01 Tissue . 01 Material submitted: . breast - RIGHT BREAST MASS 10:00 8 CM FN . 01 Diagnosis: A. Right Breast Mass, 10 o'clock, 8 cm From The Nipple, Biopsy: Invasive (ductal) carcinoma with lobular growth pattern, grade 2 of 3 ([place] combined histologic score of 7/9), with the following characteristics: 1. Nuclear grade: High. (3/3) 2. Mitotic rate: Low. (1/3); See comment. 3. Tubular differentiation: None. (3/3) 4. Tumor size: 9 mm in largest extent, involving five cores. 5. Ductal carcinoma in situ: Focally suspected, with the following features: - Solid pattern. - Intermediate grade. - Necrosis: Not identified. 6. Calcifications: Not identified. 7. Lymphovascular space invasion: Not definitive. 8. Prognostic markers: - Estrogen receptor: Positive (more than 95% tumor cells staining, staining intensity: moderate to strong). - Progesterone receptor: Positive (more than 85% tumor cells staining, staining intensity: moderate to strong). -HER2: Negative for protein overexpression by immunohistochemistry (0). . . COMMENT: Extensive crushing artifact limits both histologic evaluation and assessment of mitotic activity. [facility] 04/02/2023 1549 Local . 01 Electronically signed: . Tila Way MD, Pathologist NPI- [id number] . 01 Gross description: . The specimen is received in formalin labeled with the patient's name, , and BX breast, and consists of multiple samuel to brown soft tissue fragments aggregating to 2.5 x 1.5 x 0.2 cm. The specimen is inked orange, is filtered into a biopsy bag, and is submitted entirely in cassette A1. . The specimen was removed on 03/26/2023 at 1350; time in formalin not provided; cold ischemic time cannot be calculated; total fixation time is approximately 37 hours. ([id number]) /MRV 03/27/2023 1523 Local . 01 Microscopic: . A panel of immunostains is obtained on the neoplastic proliferation, with appropriately staining external controls, and the invasive carcinoma shows the following immunoprofile: . P63 and smooth muscle myosin: Appears lost (evaluation extensively limited by technical artifact, but findings in support of invasive carcinoma). D2-40: No definitive staining around tumor nests. E-cadherin and beta-catenin: Strong and diffuse membranous immunoreactivity, in support of ductal phenotype. . Predictive marker immunohistochemical studies are performed on block A1 with the invasive carcinoma showing the following results: . Estrogen receptor (SP1): Positive (more than 95% tumor cells staining, staining intensity: moderate to strong). Progesterone receptor (1E2): Positive (more than 85% tumor cells staining, staining intensity: moderate to strong). Her2: Negative for protein overexpression by immunohistochemistry (0). . Internal controls for ER and CA are positive. Cold ischemic time is <5 minutes. The scoring criteria for breast biomarkers by immunohistochemistry is based on the ASCO/CAP guidelines (Joyce AC et al, J Clin Oncol: 2018 May 11;36(20):6417-4631 and Madelyn BERNARD et al, Arch Pathol Lab Med: 2009;134(6):907-22). Deparaffinized sections of formalin fixed tissue (along with appropriate positive controls) are incubated with the above antibody(s). Using the automated [employer] stainer, tissue is incubated with the designated antibody which is then localized by a non-biotin, dual polymer detection system. The external controls are reviewed for appropriate reactivity and found to be adequate. Results on the target cell population are indicated above. These tests have not been validated on decalcified tissue. This test was developed and its performance characteristics determined by [facility]. It has not been cleared or approved by the U.S. Food and Drug Administration. The FDA has determined that such clearance or approval is not necessary. This test is used for clinical purposes. It should not be regarded as investigational or for research. . 01 Pathologist provided ICD-10: C50.811 . 01 CPT . 008416, F78784, X88791, 768739, 541186, 629627 Specimen Comment: A courtesy copy of this report has been sent to [phone] Performed at: 01 [facility] [address] [place] [address], [place], [place] [id number] MD Chapin Albright MD Phone: [phone]
--- NOTE | 2023-03-26 12:38 | DI.US.S_ITS ---
ULTRASOUND GUIDED BIOPSY RIGHT BREAST USING VACUUM DEVICE WITH MARKING DEVICE INSERTED AND POST MAMMOGRAPHIC IMAGIN03/26/2023 CLINICAL: Repeat biopsy right breast biopsy 10:00 8cmfn. PATIENT CONSENT: Risks (minor bleeding, infection, vasovagal reaction and repeat procedure), benefits and alternatives were explained to the patient and written informed consent was obtained. Correlation is made to exams dated: 03/13/2023 ultrasound biopsy, 03/13/2023 mammogram, 02/27/2023 ultrasound, and 02/27/2023 mammogram - [facility]. An ultrasound guided biopsy using real-time ultrasound was performed for the irregular shaped area of architectural distortion located in the right breast at 10 o'clock posterior depth. This was described on the previous mammography and ultrasound reports. The skin was prepped in the usual manner. Local anesthetic was administered to the access site. A skin michelle was made in the breast. The abnormality was approached from the lateral aspect. A 13 gauge biopsy needle was placed adjacent to the abnormality under ultrasound guidance. Once the needle was documented to be in the correct location, five specimens were obtained using the Mammotome biopsy system. A clip was inserted into the biopsy cavity. A sterile dressing was applied to the access site. Post procedure mammographic imaging demonstrates the location device at the targeted area. The specimens were sent to the laboratory for pathological analysis. IMPRESSION: ULTRASOUND GUIDED BIOPSY MALIGNANT Ultrasound guided biopsy of the area of architectural distortion in the right breast at 10 o'clock posterior depth was successful. Pathology indicates malignant invasive ductal carcinoma with lobular features and ductal carcinoma in situ (DCIS). Pathology results are concordant with imaging findings. A surgical/oncologic consultation is recommended. This exam was interpreted at Station ID: [id number]. Hitesh Tabares M.D. aty/:04/03/2023 10:49:59
== END ==
PROVIDERS: PCP Family Medicine; Referring Provider Obstetrics & Gynecology; Visit Provider Obstetrics & Gynecology
DX: R92.8 Other abnormal and inconclusive findings on diagnostic imaging of breast (principal)
CPT/HCPCS: 19083; 77065